=== PATIENT | male | born 1980 | race African-American/Black ===

== ENCOUNTER 2021-09-13 14:48 | Emergency (ER) | payer MEDICAID ==
[~2021-09-13] VITALS: Ht 185.4 cm; Wt 99.8 kg
--- NOTE | 2021-09-13 15:24 | NUR ---
at bedside for assessment
[2021-09-13] MEDS ORDERED: ACETAMINOPHEN ES 500 MG TABLET PO ONE (16:30)
[2021-09-13] MEDS ORDERED: ACETAMINOPHEN ES 500 MG TABLET ONE (16:35)
[2021-09-13 16:38] LABS: HEMATOCRIT 41.3 % (36.7-47.1); MEAN CORPUSCULAR HEMOGLOBIN 31.6 uug (23.8-33.4); MEAN CORPUSCULAR VOLUME 92.4 fL (73.0-96.2); PLATELET COUNT (AUTO) 297 K/uL (152-348)
[2021-09-13 16:44] LABS: *COLOR,URINE YELLOW (YELLOW); *KETONES,URINE NEGATIVE (NEGATIVE); LEUKOCYTE ESTERASE ,URINE NEGATIVE (NEGATIVE); NITRITE, URINE NEGATIVE (NEGATIVE); UGLUCOSE NEGATIVE (NEGATIVE)
[2021-09-13 16:46] LABS: CARBON DIOXIDE 26 mmol/L (21-32); CHLORIDE 104 mmol/L (98-107); CREATININE 0.8 mg/dL (0.6-1.3); GLUCOSE 94 mg/dL (74-106); POTASSIUM 3.5 mmol/L (3.5-5.1); UREA NITROGEN, BLOOD 14 mg/dL (7-18)
[2021-09-13 16:47] LABS: *BILIRUBIN,URIN 1+ (NEGATIVE); *BLOOD, URINE TRACE (NEGATIVE)
[2021-09-13 16:50] LABS: *CLARITY,URINE SLIGHTLY HAZY (CLEAR)
[2021-09-13 16:51] LABS: BACTERIA,URINE FEW /HPF (NONE SEEN); MUCUS,URINE FEW /LPF (0-FEW); SQUAMOUS EPITHELIAL CELL,UR FEW /HPF (NONE SEEN); WBC,URINE 0-3 /HPF (0-3)
[2021-09-13 16:52] LABS: ALANINE AMINOTRANSFERASE 55 U/L (16-63); ALKALINE PHOSPHATASE 64 U/L (50-136); ASPARTATE AMINOTRANSFERASE 21 U/L (15-37); BILIRUBIN,DIRECT 0.2 mg/dL (0.0-0.2); BILIRUBIN,TOTAL 0.6 mg/dL (0.2-1.0); ETHANOL < 3 MG/DL (0-0)
[2021-09-13 16:54] LABS: *AMPHETAMINE, URINE POSITIVE (NEGATIVE); *CANNABINOID, URINE POSITIVE (NEGATIVE); *COCCAINE, URINE NEGATIVE (NEGATIVE); *OPIATE, URINE NEGATIVE (NEGATIVE); *PHENCYCLIDINE SCREEN,URINE NEGATIVE (NEGATIVE)
--- NOTE | 2021-09-13 17:00 | NUR ---
2 meal trays given, Tap card provided, resources for shelters provided
--- NOTE | 2021-09-13 18:24 | NUR ---
Patient given written and verbal discharge instructions. Patient verbalizes understanding of instructions. Patient is ambulatory with steady gait. Refuses offer of [facility] placement. Patient given list of available shelters in surrounding area.
[2021-09-13 18:29] VITALS: BP 143/81
[2021-09-15] MEDS ORDERED: TRANEXAMIC ACID 1,000 MG/10 ML VIAL ONE (06:49)
== END 2021-09-13 18:33 | disposition home or self-care (01) ==
LOC: ER 14:53
DX: F15.10 Other stimulant abuse, uncomplicated (principal); F29 Unspecified psychosis not due to a substance or known physiological condition; F25.9 Schizoaffective disorder, unspecified; Z20.822 Contact with and (suspected) exposure to COVID-19
CPT/HCPCS: 36415; 85025; A4663; A9150; G0480